=== PATIENT | female | born 1965 | race Caucasian/White ===

== ENCOUNTER 2018-09-06 08:00 | Emergency (ER) | payer BC ==
[2018-09-06] MEDS ORDERED: Ketorolac Tromethamine 30 MG/ML VIAL ONE (08:17)
== END 2018-09-06 08:58 | disposition home or self-care (01) ==
LOC: ERS 08:00
DX: M54.5 Low back pain (principal)
CPT/HCPCS: 96372; J1885

== ENCOUNTER 2023-07-15 12:51 | Inpatient (IN) | payer BC ==
[~2023-07-15 12:51] MED LIST: Iopamidol-370 76% 500 ML MDV (1 ML CHARGE) ONE
[2023-07-15] MEDS ORDERED: Prochlorperazine 10 MG/2 ML VIAL ONE (13:27)
[2023-07-15 13:39] LABS: #Monocytes 0.2 thou/uL (0.11-0.59); #Neutrophils 14.4 thou/uL (1.40-6.50); %Basophils 0.2 % (0.0-1.0); %Eosinophils 0.3 % (0.0-10.0); %Lymphocytes 3.1 % (21.0-51.0); %Monocytes 1.4 % (0.0-10.0); %Neutrophils 94.7 % (42.0-75.0); Hematocrit 47.6 % (36.0-47.0); Hemoglobin 14.9 g/dL (12.0-16.0); Mean Corpuscular HGB CONC 31.3 g/dL (32.0-36.0); Mean Corpuscular Hemoglobin 27.7 pg (27.0-31.0); Mean Corpuscular Volume 88.6 fl (78.0-98.0); Mean Platelet Volume 9.7 fL (7.4-10.4); Platelet Count 364 10x3/uL (130-400); RBC Distribution Width 14.2 % (11.5-14.5); Red Blood Cell (RBC) Count 5.37 mill/uL (4.20-5.40); White Blood Cell (WBC) Count 15.2 10x3/uL (4.8-10.8)
[2023-07-15 14:00] LABS: ALT (SGPT) 145 U/L (8-55); AST (SGOT) 277 U/L (5-34); Albumin 4.2 g/dL (3.5-5.0); Alkaline Phosphatase 155 U/L (40-110); Anion Gap 17 mmol/L (10-20); BUN (Urea Nitrogen) 11 mg/dL (9.8-20.1); Bilirubin, Total 2.3 mg/dL (0.2-1.2); Calc. Creatinine Clearance 0 mL/min (70-130); Calcium 9.7 mg/dL (7.8-10.44); Carbon Dioxide 22 mmol/L (22-29); Chloride 104 mmol/L (98-107); Estimated GFR 78; Globulin 3.9 g/dL (2.4-3.5); Glucose 209 mg/dL (70-105); Lipase 25 U/L (8-78); Potassium 3.6 mmol/L (3.5-5.1); Protein, Total 8.1 g/dL (6.0-8.3); Sodium 139 mmol/L (136-145)
[2023-07-15] MEDS ORDERED: fentaNYL 50 mcg/mL 1 mL Vial ONE (14:08)
[2023-07-15] MEDS ORDERED: Glucagon 1 MG/ML KIT IM PRN (14:33)
[2023-07-15] MEDS ORDERED: Mag-Al 1200 mg/1200 mg/30 ML UDCUP PO PRN (14:33)
[2023-07-15] MEDS ORDERED: Promethazine HCl 25 MG/ML VIAL IM PRN (14:33)
[2023-07-15] MEDS ORDERED: hydrALAZINE 20 MG/ML VIAL SLOW IVP PRN (14:33)
[2023-07-15] MEDS ORDERED: Ondansetron PF 4 MG/2 ML Vial IVP PRN (14:33)
[2023-07-15] MEDS ORDERED: Calcium Carbonate 500 MG ChewTAB PO PRN (14:33)
[2023-07-15] MEDS ORDERED: Dextrose 5% in Water 1,000 ML IV PRN (14:33)
[2023-07-15] MEDS ORDERED: Ipratropium/Albuterol 3 ML NEB NEB PRN (14:33)
[2023-07-15] MEDS ORDERED: Dextrose 50% Abboject 50 ML SYRINGE SLOW IVP PRN (14:33)
[2023-07-15] MEDS ORDERED: metroNIDAZOLE 500 MG (100 mL) BAG ONE (14:39)
[2023-07-15] MEDS ORDERED: Acetaminophen 325 MG TAB PO PRN (14:39)
[2023-07-15] MEDS ORDERED: Ciprofloxacin Lactate/D5W 200 MG in Premix 1 BAG IVPB SCH ×2 (15:30→18:00)
[2023-07-15 15:48] VITALS: BMI 40.9
[2023-07-15] MEDS: Sodium Chloride 0.9% 1,000 ML IV SCH (17:33)
[2023-07-15] MEDS: Famotidine 20 MG TAB PO SCH (20:51)
[2023-07-15] MEDS: HYDROcodone/Acetaminophen 10/325 mg Tablet PO PRN (21:01)
[2023-07-15] MEDS: metroNIDAZOLE 500 MG in Premix 1 BAG IVPB SCH (21:01)
[2023-07-15] MEDS: Famotidine/PF 20 mg/2ml Vial SLOW IVP SCH (21:01)
[2023-07-16] MEDS: Sodium Chloride 0.9% 1,000 ML IV SCH ×5 (03:02→23:27)
[2023-07-16] MEDS: HYDROcodone/Acetaminophen 10/325 mg Tablet PO PRN (03:03)
[2023-07-16] MEDS: metroNIDAZOLE 500 MG in Premix 1 BAG IVPB SCH ×2 (05:52→16:26)
[2023-07-16] MEDS ORDERED: HYDROcodone/Acetaminophen 10/325 mg Tablet PO PRN (06:39)
[2023-07-16] MEDS: LevoFLOXacin 500 mg/D5W 500 MG in Premix 1 BAG IVPB SCH (08:57)
[2023-07-16] MEDS: Famotidine 20 MG TAB PO SCH ×2 (08:58→20:55)
[2023-07-16] MEDS: Famotidine/PF 20 mg/2ml Vial SLOW IVP SCH (08:58)
[2023-07-16] MEDS: Oxybutynin 5 MG TAB PO SCH (08:58)
[2023-07-16] MEDS: Acetaminophen 500 MG TAB PO SCH ×3 (08:59→20:54)
[2023-07-16] MEDS ORDERED: Ciprofloxacin Lactate/D5W 400 MG in Premix 1 BAG IVPB SCH (09:00)
[2023-07-16 10:00] LABS: ALT (SGPT) 150 U/L (8-55); AST (SGOT) 117 U/L (5-34); Albumin 3.1 g/dL (3.5-5.0); Alkaline Phosphatase 149 U/L (40-110); Anion Gap 16 mmol/L (10-20); BUN (Urea Nitrogen) 16 mg/dL (9.8-20.1); Bilirubin, Total 6.3 mg/dL (0.2-1.2); Calc. Creatinine Clearance 119 mL/min (70-130); Calcium 8.4 mg/dL (7.8-10.44); Carbon Dioxide 16 mmol/L (22-29); Chloride 108 mmol/L (98-107); Estimated GFR 80; Globulin 3.6 g/dL (2.4-3.5); Glucose 109 mg/dL (70-105); Potassium 4.4 mmol/L (3.5-5.1); Protein, Total 6.7 g/dL (6.0-8.3); Sodium 136 mmol/L (136-145)
[2023-07-16] MEDS ORDERED: Iopamidol 30 ML ONE (11:51)
[2023-07-16] MEDS ORDERED: EPINEPHrine 1 MG/ML VIAL ONE (11:51)
[2023-07-16] MEDS ORDERED: Glucagon 1 MG/ML KIT ONE (11:51)
[2023-07-16] MEDS ORDERED: Bupivacaine PF 0.5% 30 ML VIAL ONE (11:52)
[2023-07-16] MEDS ORDERED: Succinylcholine 200 MG/10 ml SYRINGE FS ONE (12:20)
[2023-07-16] MEDS ORDERED: Rocuronium Bromide 10 MG/ML (10ML VIAL) ONE (12:23)
[2023-07-16] MEDS ORDERED: Lidocaine 1% PF 5 ML VIAL ONE (12:23)
[2023-07-16] MEDS ORDERED: Ondansetron PF 4 MG/2 ML Vial ONE (12:23)
[2023-07-16] MEDS ORDERED: PROPOFOL 20 ML ONE (12:23)
[2023-07-16] MEDS ORDERED: Scopolamine 1 mg/72 hour Patch ONE (12:24)
[2023-07-16] MEDS ORDERED: Ketorolac Tromethamine 30 MG (1 mL) VIAL ONE (12:24)
[2023-07-16] MEDS ORDERED: fentaNYL 50 mcg/mL 1 mL Vial ONE ×2 (12:25→13:45)
[2023-07-16] MEDS ORDERED: Dexamethasone 20 MG/5 ML VIAL ONE (12:25)
[2023-07-16] MEDS ORDERED: PHENYLEPHRINE-NS 100 MCG/ML 10 ML SYRINGE ONE (12:58)
[2023-07-16] MEDS ORDERED: Ondansetron HCl/PF 4 MG/2 ML Vial IVP PRN (13:33)
[2023-07-16] MEDS ORDERED: Meperidine HCl/PF 25 MG/ML VIAL SLOW IVP PRN (13:33)
[2023-07-16] MEDS ORDERED: Promethazine HCl 25 MG/ML VIAL IM PRN (13:33)
[2023-07-16] MEDS ORDERED: HYDROmorphone 2 MG/ML VIAL SLOW IVP PRN (13:33)
[2023-07-16] MEDS ORDERED: Morphine Sulfate 2 MG/ML SYRINGE SLOW IVP PRN (13:33)
[2023-07-16] MEDS ORDERED: Glycopyrrolate 0.2 MG/ML 5 ML SYRINGE ONE (13:36)
[2023-07-16] MEDS ORDERED: NEOSTIGMINE 3 MG/3 ML SYR 3 MG/3 ML SYRINGE ONE (13:36)
[2023-07-16] MEDS ORDERED: Ibuprofen 600 MG TAB PO PRN (14:30)
[2023-07-16] MEDS: traMADol HCl 50 MG TAB PO PRN ×2 (16:09→20:53)
[2023-07-16] MEDS: Ketorolac Tromethamine 30 MG (1 mL) VIAL IVP SCH ×2 (18:23→23:27)
[2023-07-16] MEDS ORDERED: Enoxaparin 40 MG (0.4 mL) SYRINGE SC SCH (21:00)
[2023-07-17] MEDS: Acetaminophen 500 MG TAB PO SCH ×2 (05:23→08:45)
[2023-07-17] MEDS: Ketorolac Tromethamine 30 MG (1 mL) VIAL IVP SCH (05:25)
[2023-07-17] MEDS: Sodium Chloride 0.9% 1,000 ML IV SCH (05:26)
[2023-07-17] MEDS ORDERED: LevoFLOXacin 750 MG TAB PO SCH (06:00)
[2023-07-17] MEDS: LevoFLOXacin 500 mg/D5W 500 MG in Premix 1 BAG IVPB SCH (08:45)
[2023-07-17] MEDS: Oxybutynin 5 MG TAB PO SCH (08:46)
[2023-07-17] MEDS: Famotidine 20 MG TAB PO SCH (08:46)
[2023-07-17 10:51] LABS: ALT (SGPT) 103 U/L (8-55); AST (SGOT) 59 U/L (5-34); Albumin 3.3 g/dL (3.5-5.0); Alkaline Phosphatase 100 U/L (40-110); Anion Gap 10 mmol/L (10-20); BUN (Urea Nitrogen) 18 mg/dL (9.8-20.1); Bilirubin, Direct 1.8 mg/dL (0.1-0.3); Bilirubin, Total 2.5 mg/dL (0.2-1.2); Calc. Creatinine Clearance 105 mL/min (70-130); Calcium 8.5 mg/dL (7.8-10.44); Carbon Dioxide 22 mmol/L (22-29); Chloride 107 mmol/L (98-107); Estimated GFR 69; Glucose 123 mg/dL (70-105); Protein, Total 6.3 g/dL (6.0-8.3); Sodium 135 mmol/L (136-145)
[2023-07-17 13:06] VITALS: BP 123/78; TEMP 97.8
== END 2023-07-17 14:23 | disposition home or self-care (01) | DRG 418 ==
LOC: ERS 12:51 → SURG A 14:35
PROVIDERS: ADMIT Surgery; ATTEND Surgery
PROC: 0FT44ZZ Resection of Gallbladder, Percutaneous Endoscopic Approach (ICD-10-PCS; principal; 2023-07-16)
DX: K80.00 Calculus of gallbladder with acute cholecystitis without obstruction (principal); Z68.41 Body mass index [BMI] 40.0-44.9, adult; K82.A1 Gangrene of gallbladder in cholecystitis; E66.01 Morbid (severe) obesity due to excess calories; Z88.5 Allergy status to narcotic agent; Z88.0 Allergy status to penicillin; Z96.653 Presence of artificial knee joint, bilateral; Z79.899 Other long term (current) drug therapy
CPT/HCPCS: 36415; 47532; 74177; 76705; 80048; 80053; 80076; 83690; 85025; 88304; 96374; 96375; C1889; J0171; J0744; J0780; J1100; J1611; J1650; J1885; J1956; J2405; J2704; J3010; J7050; Q9967; S0020; S0028